=== PATIENT | male | born 1960 | race Caucasian/White ===

== ENCOUNTER → 2018-05-01 10:14 | Outpatient (CLI) | payer OTHER, MEDICAID, SELFPAY ==
[2018-05-01 11:06] LABS: Add Manual Diff / Slide Review NO; Basophils Percent Auto 0.7 % (0-2); Eosinophils Percent Auto 0.9 % (2-4); Hematocrit 41.8 % (41-53); Hemoglobin 14.9 g/dL (13.5-17.5); Lymphocytes Percent Auto 29.9 % (25-40); Mean Corpuscular HGB Conc 35.6 % (30-36); Mean Corpuscular Hemoglobin 32.2 PG (26-34); Mean Corpuscular Volume 90.5 fL (80-100); Monocytes Percent Auto 13.1 % (3-14); Neutrophils Absolute Auto 3200 /uL (3000-5900); Neutrophils Percent Auto 55.4 % (50-75); Platelet Count 232 X10^3/uL (150-400); Red Blood Cell Count 4.62 X10^6/uL (4.5-5.9); Red Cell Distribution Width 12.9 % (11.6-14.8); White Blood Cell Count 5.8 X10^3/uL (4.5-11.0)
[2018-05-01 11:25] LABS: Alanine Aminotransferase 77 IU/L (21-72); Albumin 4.5 g/dL (3.5-5.0); Albumin Globulin Ratio 1.5 (1.0-2.8); Alkaline Phosphatase 97 U/L (38-126); Aspartate Aminotransferase 54 IU/L (17-59); BUN Creatinine Ratio 16.7 (6-22); Bilirubin Total 0.6 mg/dL (0.2-1.3); Blood Urea Nitrogen 15 mg/dL (9-20); Calcium 9.4 mg/dL (8.4-10.2); Carbon Dioxide 28 mmol/L (22-32); Chloride 97 mmol/L (98-107); Cholesterol 269 mg/dL (140-199); Estimated Glomerular Filt Rate > 60.0 mL/min (>60); Globulin 3.1 g/dL (1.7-4.1); Glucose 95 mg/dL (80-110); HDL Cholesterol 82 mg/dL (40-60); HEMOLYSIS < 15 (0-50); LDL Cholesterol Calculated 163 mg/dL (<100); Potassium 4.1 mmol/L (3.4-5.1); Sodium 135 mmol/L (137-145); Total Protein 7.6 g/dL (6.3-8.2); Triglycerides 121 mg/dL (35-150)
== END ==
PROVIDERS: PCP Family Medicine; Visit Provider Family Medicine
DX: R74.8 Abnormal levels of other serum enzymes (principal)
CPT/HCPCS: 36415; 80053; 80061; 85025; G0103

== ENCOUNTER 2018-05-01 13:48 | Emergency (ER) | payer OTHER, MEDICAID, SELFPAY ==
[2018-05-01 13:58] VITALS: BP 156/100; PULSE 98; RESP 18; TEMP 36.2; O2SAT 98; BMI 26.4
--- NOTE | 2018-05-01 13:58 | ED.ALCOHOL ---
HPI - Alcohol <LILIAM Son - Last Filed: 05/01/18 22:17> General Chief Complaint: Toxicology Problem Stated Complaint: STATES ALCHOLISM Time Seen by Provider: 05/01/18 13:58 Source: patient Mode of arrival: ambulatory Limitations: no limitations History of Present Illness HPI narrative: 58-year-old male with history of alcohol abuse here for assistance and alcohol withdrawal as he is trying alcohol cessation. He denies having any alcohol withdrawal symptoms at this time. He states he does not have a history of having significant withdrawal symptoms. He does have an appointment with a doctor in the next few days to help with alcohol cessation. He denies any suicidal homicidal ideation. He does not desire inpatient services at this time. He is requesting to have an Ativan taper dose to help him with withdrawal symptoms over the next few days until he can get in with the doctor to help with alcohol cessation. No other concerns or complaints at this time. He states his last alcohol intake was yesterday afternoon. He states that his normal alcohol intake is roughly 12-15 beers a day. MD complaint: alcohol withdrawal Chronic alcohol use: Yes Previous visits for alcohol intoxication: Yes Associated symptoms: denies other symptoms Related Data Previous Rx's Medication Instructions Recorded chlordiazepoxide HCl 25 mg PO SEE INSTRUCTIONS #21 cap 12/11/17 estazolam 1 mg tablet 1 mg PO QDAYP #90 tab 01/14/18 paroxetine 40 mg tablet 40 mg PO Q DAY #90 tab 02/07/18 lorazepam See Label Instructions .ROUTE 05/01/18 .COMPLEX #18 tab Allergies Allergy/AdvReac Type Severity Reaction Status Date / Time No Known Drug Allergies Allergy Verified 05/01/18 13:57 Review of Systems <LILIAM Son - Last Filed: 05/01/18 22:17> Review of Systems Desires Ativan taper dose for alcohol withdrawal Constitutional Denies chills, Denies fever(s), Denies lethargy and Denies weakness Eyes Denies change in vision, Denies eye discharge, Denies irritation and Denies loss of vision ENT Ears, Nose, Mouth, and Throat: Denies change in voice, Denies neck pain and Denies sore throat Cardiovascular Denies chest pain, Denies irregular heart rhythm, Denies lightheadedness, Denies palpitations, Denies dyspnea, Denies dyspnea on exertion and Denies orthopnea Respiratory Denies cough, Denies dyspnea, Denies dyspnea on exertion and Denies wheezing Gastrointestinal Gastrointestinal: Denies abdominal pain, Denies change in bowel habits, Denies diarrhea, Denies nausea and Denies vomiting Genitourinary Denies hematuria, Denies flank pain, Denies urinary incontinence and Denies urinary urgency Musculoskeletal Denies neck pain Integumentary/Breasts Denies pruritus, Denies erythema, Denies rash and Denies wounds Neurologic Denies confusion, Denies loss of vision and Denies weakness Psychiatric Denies anxiety, Denies confusion, Denies depression, Denies homicidal ideation and Denies suicidal ideation Endocrine Denies palpitations Allergic/Immunologic Denies wheezing Exam <LILIAM Son - Last Filed: 05/01/18 22:17> Initial Vital Signs Initial Vital Signs: Vital Signs Temperature 97.2 F L 05/01/18 13:58 Pulse Rate 98 H 05/01/18 13:58 Respiratory Rate 18 05/01/18 13:58 Blood Pressure 156/100 H 05/01/18 13:58 Pulse Oximetry 98 05/01/18 13:58 Const General: cooperative and well developed Nutritional Appearance: well nourished Orientation: alert, awake, oriented x3 and not confused HENMT Mouth: oral mucosae normal and moist mucous membranes Eyes Conjunctivae: conjunctivae normal Sclera: sclerae normal Pupils: PERRL EOM: EOM intact bilaterally Resp Effort & Inspection: normal respiratory effort, able to speak in complete sentences, no respiratory distress and no use of accessory muscles Auscultation: clear to auscultation bilaterally, no rales, no rhonchi and no wheezes Cardio Rate: regular rate Rhythm: regular rhythm Heart Sounds: no click, no gallops, no murmurs and no rubs Skin General: no rashes or lesions noted, No jaundice and No petechiae Neuro General: alert, oriented x3, gait normal and no focal motor deficits Speech: speech normal Psych Appearance: well kempt Mental Status: mental status grossly normal Attitude: cooperative Thought Content: normal, no homicidality and suicidality Judgment: judgment good <Obed Mitchell DO - Last Filed: 05/02/18 07:28> Initial Vital Signs Initial Vital Signs: Vital Signs Temperature 97.2 F L 05/01/18 13:58 Pulse Rate 98 H 05/01/18 13:58 Respiratory Rate 18 05/01/18 13:58 Blood Pressure 156/100 H 05/01/18 13:58 Pulse Oximetry 98 05/01/18 13:58 Course <Jared LILIAM Duron - Last Filed: 05/01/18 22:17> Vital Signs - 8 hr 05/01/18 14:39 Pulse Rate 83 Respiratory Rate 20 Blood Pressure [Right Arm] 121/76 H Pulse Oximetry 97 <Obed Mitchell DO - Last Filed: 05/02/18 07:28> Vital Signs - 8 hr 05/01/18 14:39 Pulse Rate 83 Respiratory Rate 20 Blood Pressure [Right Arm] 121/76 H Pulse Oximetry 97 MDM - Alcohol <Jared GarciaLILIAM lozano - Last Filed: 05/01/18 22:17> MDM Narrative Medical decision making narrative: He appears to have good resource is set up for his alcohol cessation. He is provided with a Ativan taper dose to help with alcohol withdrawal symptoms. Follow up with his doctor next week as scheduled for further treatment. For any worsening symptoms return to the emergency room. He is instructed not to use Ativan taper dose in conjunction with alcohol. Discharge Plan Departure Patient Disposition: Home Clinical Impression: Alcohol abuse Discharge Date/Time: 05/01/18 14:40 Interventions: ED Discharge Assessment Last Done: 05/01/18 14:39 Instructions: DI for Alcohol Abuse Activity Restrictions/Additional Instructions: You are provided with an Ativan taper does use as directed to help with alcohol withdrawal symptoms use as directed. No driving while on the Ativan. If you drink alcohol do not use in conjunction with the Ativan. Follow up with your doctor as scheduled next week for further treatment options. For any worsening symptoms return to the emergency room. Prescriptions: New lorazepam 1 mg tablet See Label Instructions .ROUTE .COMPLEX Qty: 18 RF: 0 No Action chlordiazepoxide HCl 25 MG capsule 25 mg PO SEE INSTRUCTIONS Qty: 21 RF: 0 estazolam 1 mg tablet 1 mg PO QDAYP Qty: 90 RF: 0 paroxetine HCl [Paxil] 40 mg tablet 40 mg PO Q DAY Qty: 90 RF: 3 Referrals: Dakota Kruger MD [Primary Care Provider] - <Obed Mitchell DO - Last Filed: 05/02/18 07:28> Cosign ED Attending Cosignature Attestation: I was available for consultation during this patient's emergency department encounter
[2018-05-01 14:00] VITALS: BP 156/100; PULSE 98; RESP 18; TEMP 36.2; O2SAT 98; BMI 26.4
[2018-05-01 14:39] VITALS: BP 121/76; PULSE 83; RESP 20; O2SAT 97
--- NOTE | 2018-05-01 14:49 | CM.SWNOTE ---
ED SALESPERSON BURIAL NEEDS NOTE: Presenting Problem: Pt is a 58 yo male who appears to be his stated age. He came in requesting a taper to help with ETOH withdrawl. He reported that he did this last year and was able to stay sober for three months. Pt stated that he is currently srinking approximately 18 beers per day. He identified the precipitating factor for increased drinking which began 3 years ago as his daughter going away to college. He stated that he desires to stop drinking because he has a lot of responsibilities and is aware that he is self-medicating. Pt's daughter is beginning Law School at [employer] and wants to be a better role model for her. He spoke of the past several months as being very stressful. He lives on [address] [facility] and since August has been caring for his 91 yo mother and 89 yo father. They both ended up with pneumonia, but his father never returned home and instead has been residing at [facility]. Pt was able to identify family of origin issues as a precipitant to the increased stressors and use of alcohol. Instead of living in his own home, he has essentially moved into his parent's home and his house remains uninhabited. Pt reported that he has been taking Paxil for 25 years, and has a long history of depression. [facility] supported his desire to get help and his plan to see a new PCP through the [facility] clinic. Inquired if he has ever been to AA or nay interest in going. He was hesitant in his reponse, but basically stated that he knows it helps others, but has not been something he is interested in. [employer] inroduced him to the idea of [facility], and provided him with the phone # and meeting times. He seemed interested and appreciative of time spent. No further social work needs noted. Pt was discharged home with script for ETOH taper. EDischarge Planning/Care Management ED Crisis Response Assessment Start: 05/01/18 14:44 Freq: Status: Active Protocol: Document 05/01/18 14:44 (Rec: 05/01/18 14:49 [id number]) ED Crisis Response Assessment [employer]ERSON [employer] NEED[employer] Assessment Type Substance Abuse Reason for [employer]ERSON [employer]IAL NEEDS Referral Pt came to the ED for a taper to help with ETOH withdrawal. Referred by Pt's RN Presenting Problem Pt is driking 18 beers per day and wants to stop drinking. Mental health diagnosis ETOH abuse; depression VOA/CMS check No Suicidal thoughts No Past Suicidal thoughts No Current Suicidal thoughts No Current plan for self harm No Thoughts of harm to others No Past thoughts of harm to others No Current thoughts of harming others No Prior attempts to harm others No Current plan to harm others No Current Risk factors Marital and family difficulties Crisis Plan Pt has an appt with Dr Garcia at the [facility] on Saturday. If he feels as though he may drink, will call his brother who lives in [facility] and is a good support to him. Resources Provided Info and phone numbers for AA and [facility]. Pt already had information for [facility] and crisis numbers. Action taken Sent home w/ safety plan Additional Comment Pt is very motivated for change and has a good support system.
== END 2018-05-01 14:40 | disposition home or self-care (01) ==
PROVIDERS: Emergency Provider Nurse Practitioner Family; PCP Family Medicine
DX: F10.10 Alcohol abuse, uncomplicated (principal)
CPT/HCPCS: 36415; 80053; 80061; 85025; 99282; 99283; G0103

== ENCOUNTER → 2019-04-23 08:47 | Outpatient (CLI) | payer OTHER, MEDICAID, SELFPAY ==
--- NOTE | 2019-04-23 | DI.US.S_ITS ---
PROCEDURE: US THYROID INDICATIONS: DISORDER OF THYROID, UNSPECIFIED, LEFT SIDE TECHNIQUE: Real-time scanning was performed of the thyroid gland, with image documentation. COMPARISON: None. FINDINGS: Right: Thyroid lobe measures 5.5 x 1.4 x 1.5 cm, and is homogeneous in echotexture. 2 mm right thyroid calcification. Left: Thyroid lobe measures 6.2 x 2.4 x 3.3 cm, and is homogenous in echotexture. Isthmus: 3.0 mm thick. Nodule number: 1 Location: Right mid to superior Size: 0.6 x 0.3 x 0.5 cm. Composition: Predominantly solid Echogenicity: Hypoechoic Shape: wider than tall. Margins: Smooth Echogenic foci: None Total points: 4 ACR TI-RADS category: Moderately suspicious Nodule number: 2 Location: Left lobe Size: 4.5 x 2.2 x 3.6 cm. Composition: Predominantly solid Echogenicity: Isoechoic Shape: wider than tall. Margins: Smooth Echogenic foci: Internal punctate echogenic foci. Total points: 6 ACR TI-RADS category: Moderately suspicious IMPRESSION: 1. Left lobe thyroid nodule measuring 4.5 cm. TI-RADS 4. FNA is recommended. 2. Right mid/superior subcentimeter thyroid nodule. TI-RADS 4. Followup ultrasound could be considered. ACR TI-RADS definitions and recommendations: TI-RADS 1 (benign): 0 points. FNA not needed. TI-RADS 2 (not suspicious): 2 points. FNA not needed. TI-RADS 3 (mildly suspicious): 3 points. * FNA if 2.5 cm or larger, follow up if 1.5 cm or larger (at 1, 3, and 5 years). TI-RADS 4 (moderately suspicious): 4-6 points. * FNA if 1.5 cm or larger, follow up if 1 cm or larger (at 1, 2, 3, and 5 years). TI-RADS 5 (highly suspicious): 7 points or more. * FNA if 1 cm or larger, follow up if 0.5 cm or larger (every year for 5 years). Dictated by: Uzair SHARMA Interpreted: Alexis Wells MD on 04/23/2019 at 10:52 Approved by: Alexis Wells M.D. on 04/23/2019 at 16:03
[2019-04-23 11:06] LABS: Free T4, Direct Thyroxine 0.68 ng/dL (0.78-2.19)
[2019-04-25 15:12] LABS: Triiodothyronine T3 Total 116 ng/dL (76-181)
== END ==
PROVIDERS: PCP Internal Medicine; Visit Provider Internal Medicine
DX: E04.2 Nontoxic multinodular goiter (principal)
CPT/HCPCS: 36415; 76536; 84439; 84443; 84480

== ENCOUNTER → 2019-05-18 09:39 | Outpatient (CLI) | payer OTHER, MEDICAID, SELFPAY ==
--- NOTE | 2019-05-18 | PATH_ITS ---
Note [facility] Accession Number: [id number] TESTS RESULT FLAG UNITS REF RANGE LAB Clinician Provided Cytology Information No. of containers..01 ThinPrep Vial No. of containers..00 Previously Prepared Cytology Slide LEFT THYROID NODULE DIAGNOSIS: 02 LEFT THYROID NODULE SUSPICIOUS FOR FOLLICULAR NEOPLASM. [place] CATEGORY IV. SUSPICIOUS FOR FOLLICULAR NEOPLASM. Moderately cellular aspirate of follicular cells with microfollicular architecture, and scant colloid. Pathologist ICD10: 02 R89.6 01 59 year old male presents with c/o mass Location Neck left lower side Duration 1 week to 1 month Character Non-painful,Stable in size Diagnostic imaging No Comments He does not report weight loss or changes in appetite but does feel a bit more fatigued than usual. 02 Jesse Mulligan MD, PhD, Pathologist NPI- [id number] Derrick Lindsay, Blade Boner ([facility]) 01 30 CC, RED, CLOUDY Received: 10 alcohol fixed and 10 quick stained slides with 1 RNA vial for further testing. /VDU 05/19/2019 0727 Local FLAG LEGEND: L-Low Normal,H-High Normal,LL-Alert Low,HH-Alert High <-Panic Low,>-Panic High,A-Abnormal,AA-Critical Abnormal Performed at: 01 =Z [facility] [address] [place] [address], [place] [address] Joon London MD, 02 [facility] [address] [place] [id number] Dominique Cotton MD, Performed at: [address] [facility] [address], [place], [place] [id number] MD Joon London MD Phone: [phone]
--- NOTE | 2019-05-18 | DI.US.S_ITS ---
PROCEDURE: US FINE NEEDLE ASPIRATION INDICATIONS: NONTOXIC SINGLE THYROID GOITER TECHNIQUE: The indications, alternatives, benefits, risks, and complications of the procedure were explained to the patient. Written informed consent was obtained and placed in the chart. The thyroid region was examined sonographically and a site was chosen for ultrasound guided percutaneous sampling. The skin was prepared and draped in the usual fashion, and anesthetized with 1% lidocaine infiltrated from the skin down to the thyroid gland. Multiple passes were then performed, with contents emptied into an appropriate pathology specimen container. After the on-site neon technician confirmed adequate sample, a bandage was applied to the area of access at completion of the study. COMPARISON: [facility], US, US THYROID, 04/23/2019, 9:09. FINDINGS: Location(s) of lesion(s) sampled: Left thyroid lobe, as described on comparison ultrasound of the thyroid gland of 04/23/19. [place]: 6 25-gauge hypodermic needles and 6 22-gauge hypodermic needles. Number of passes: 6 passes with 25-gauge hypodermic needles and 6 passes with 22-gauge hypodermic needles, for a total of 12 passes. Medications: 1% lidocaine for local anaesthesia. Complications: None. Patient denies any complaints or discomfort. IMPRESSION: Successful ultrasound-guided thyroid nodule fine needle aspiration, with cytology results pending. Please see chart below for management recommendations based on cytology results. [place] [facility] ReportingRecommendationsNon-diagnostic* Repeat US-guided FNA, with on-site cytology evaluation if possible. * Repeated non-diagnostic nodules without high suspicion US features: close observation vs surgical consult. * Consider surgery if nodule has high suspicion US features, grows >20% in 2 dimensions on followup, or patient has clinical risk factors for malignancy. Benign* If nodule has high suspicion US features: repeat US and FNA within 12 months. * If nodule has low to intermediate suspicion US features: repeat US at 12-24 months. If nodule grows (20% increase in at least 2 dimensions, with minimal increase of 2 mm or >50% change in volume), or development of new suspicious US features, then repeat FNA or continue followup. * If nodule has very low suspicion US features: followup US at >24 months. Atypia of undetermined significance, follicular lesion of undetermined significanceRepeat FNA, molecular testing, followup US, or surgical consult.Follicular neoplasm, suspicious for follicular neoplasmSurgical consult; also consider molecular testing. Suspicious for malignancySurgical consult.MalignantSurgical consult. Dictated by: Adrien Mckenzie M.D. on 05/18/2019 at 12:45 Approved by: Adrien Mckenzie M.D. on 05/18/2019 at 12:48
--- NOTE | 2019-06-02 13:28 | ONC.MSW ---
Description: T/C-New Referral/Navigation Activity: Called pt to introduce myself as the RESPIRATORY THERAPY DIRECTOR/CHELISE, share briefly the role of navigation, support and assistance available here in clinic. Informed him that we were working on pre-authorizing his referral here, and that the schedulers would be calling him shortly to schedule. No immediate needs or concerns identified at this time.
--- NOTE | 2019-06-04 09:35 | ONC.SCHED ---
Left msg. on voicemail to get patient scheduled.
== END ==
PROVIDERS: PCP Internal Medicine; Visit Provider Internal Medicine
DX: E04.1 Nontoxic single thyroid nodule (principal)
CPT/HCPCS: 10005

== ENCOUNTER 2019-06-04 12:46 | Day surgery (SDC) | payer OTHER, MEDICAID, SELFPAY ==
[2019-06-04 13:36] VITALS: BP 110/69; PULSE 57; RESP 16; TEMP 36.6; O2SAT 97; BMI 24.8
[2019-06-04] MEDS: SODIUM CHLORIDE 0.9% 1,000 ML 200 ML IV (13:44)
--- NOTE | 2019-06-04 14:03 | P.HP_ITS ---
History of Present Illness History of Present Illness Date Patient Seen: 06/04/19 Time Patient Seen: 14:03 Chief complaint: [id number] Narrative: Patient presents for colorectal screening. They had a previous colonoscopy 11 years ago that was normal. On further history denies any recent gastrointestinal symptoms. No nausea, vomiting, abdominal pain, loss of appetite, unexplained weight loss, change in bowel habits, diarrhea, constipation, melena, hematochezia, or bright red blood per rectum. Patient History Medical History Alcohol abuse (Chronic) Chronic back pain (Chronic 2005) Depression (Chronic 1986) Lumbar spine pain (Chronic 2004) Osteoarthritis (Chronic 2003) Shoulder pain (Chronic 2005) Surgical History No history of previous surgery (Resolved 01/17/16) Family History Mother Age: 93 Hypertension Osteoporosis Stroke Brother No problems noted. Brother No problems noted. Father No problems noted. Social History household members: family Smoking Status: Current every day smoker Family & Social History Family History Mother Age: 93 Hypertension Osteoporosis Stroke Brother No problems noted. Brother No problems noted. Father No problems noted. Social History: household members family Tobacco & Substance use: Smoking Status Current every day smoker alcohol intake frequency 0-2 drinks per day Substance Use Type does not use Meds Home Medications and Allergies Home Medications Medication Instructions Recorded Confirmed Type paroxetine HCl 40 mg tablet 40 mg PO Q DAY #90 tab 02/07/18 06/04/19 Rx estazolam 1 mg tablet 1 mg PO QDAYP #90 tab 09/03/18 06/04/19 Rx finasteride 5 mg PO DAILY 06/04/19 06/04/19 History tamsulosin 0.4 mg PO DAILY 06/04/19 06/04/19 History Allergies Allergy/AdvReac Type Severity Reaction Status Date / Time No Known Drug Allergies Allergy Verified 06/04/19 13:28 Review of Systems Review of Systems ROS Unobtainable: All systems reviewed & are unremarkable except as noted in HPI and below Exam Vital Signs (past 8 hours): - 06/04/19 13:36 Temperature 97.9 F Pulse Rate 57 L Respiratory Rate 16 Blood Pressure 110/69 Pulse Oximetry 97 Oxygen Delivery Method Room Air Narrative Exam Narrative: General-adult male no acute distress, well nourished HEENT-moist mucous membranes, no scleral icterus Neck-supple with full range of motion, no lymphadenopathy Chest- no labored respirations, clear to auscultation bilaterally Cardiac-regular rate and rhythm Abdomen-soft, nontender, non distended Extremities-no edema, warm well perfused Neurological-alert and oriented x 3. No focal deficits Skin-normal temperature and turgor, no rashes or ulcers Assessment & Plan Assessment and plan (1) Screening for colon cancer: Current visit: Yes Status: Acute Assessment & Plan narrative: Patient is requiring colorectal screening. Colonoscopy is recommended. Technical details were discussed. Risks, benefits, alternatives explained. Risks including but not limited to sedation, aspira tion, bleeding, pain, missed lesion, incomplete examination, need for further radiographic studies, colonic perforation, need for major abdominal surgery, and all attendant risks major surgery were discussed at length. All questions were answered to their satisfaction, and they voiced understanding.
[2019-06-04] MEDS: fentaNYL 250 MCG/5 ML INJ IV (14:22)
[2019-06-04] MEDS: MIDAZOLAM 5 MG/5 ML VIAL IV (14:23)
[2019-06-04 14:30] VITALS: BP 101/64; PULSE 63; RESP 15; TEMP 36.2; O2SAT 99
--- NOTE | 2019-06-04 14:34 | PM.OP.ENDO ---
Operative Date/Time/Diagnoses Date of procedure: 06/04/19 Time of procedure: 14:34 Pre-op diagnosis: Screening colonoscopy Post-op diagnosis: same Procedure & Clinicians Study performed: Colonoscopy Same procedure as scheduled: Yes Indications: 59-year-old male with previous normal colonoscopy 11 years ago presents for screening Surgeon: Marcio Humphrey Procedure Notes SCOAP/Timeout: Performed Procedure in detail: Digital rectal exam was performed that was negative for internal or external masses. The scope was advanced into the rectum and then advanced carefully who colon. The ileocecal valve was reached. The scope was then carefully withdrawn. The quality of the prep was excellent. There were no masses polyps or evidence of diverticulosis. Scope was retroflexed within the rectum in demonstrated grade 1 internal hemorrhoids. Scope withdrawal time: 9 Sedation minutes: 21 Specimen(s): none sent Complications: none Impression: Normal colonoscopy Post-procedure Recommendations: Colonscopy in 10 years Disposition: same day surgery
[2019-06-04 14:35] VITALS: BP 98/62; PULSE 56; RESP 15; O2SAT 99
[2019-06-04 14:40] VITALS: BP 99/62; PULSE 63; RESP 16; O2SAT 100
[2019-06-04 15:05] VITALS: BP 101/61; PULSE 54; RESP 15; TEMP 36.7; O2SAT 95
== END 2019-06-04 15:10 | disposition home or self-care (01) ==
PROVIDERS: PCP Internal Medicine; Visit Provider Surgery
PROC: 0DJD8ZZ Inspection of Lower Intestinal Tract, Via Natural or Artificial Opening Endoscopic (ICD-10-PCS; CPT 45378; principal; 2019-06-04 13:45)
DX: Z12.11 Encounter for screening for malignant neoplasm of colon (principal); K64.0 First degree hemorrhoids
CPT/HCPCS: 45378; 99152; J2250; J3010

== ENCOUNTER → 2019-06-24 09:00 | Outpatient (CLI) | payer OTHER, MEDICAID, SELFPAY ==
--- NOTE | 2019-06-24 09:06 | DI.CT.S_ITS ---
PROCEDURE: CT SOFT TISSUE NECK W CON INDICATIONS: THYROID CANCER TECHNIQUE: After the administration of intravenous contrast, 3.0 mm axial sections acquired from the sella to the aortic arch. Additional oblique axial 3.0 mm sections acquired through the pharynx. 3 mm thick coronal and sagittal reformats were generated. For radiation dose reduction, the following was used: automated exposure control. COMPARISON: [facility], , US FINE NEEDLE ASPIRATION, 05/18/2019, 10:32. [facility], , US THYROID, 04/23/2019, 9:09. FINDINGS: Image quality: Excellent. Lymph nodes: No pathologically enlarged lymph nodes seen throughout the neck. There are shotty bilateral cervical lymph nodes, all of which appear to be subcentimeter short axis. Vessels: Visualized vasculature appears patent. Neck spaces: The oropharynx, nasopharynx, and pharynx demonstrate no mucosal lesions. The vocal cords, false vocal cords, pyriform sinuses, epiglottis, vallecula, and tongue base all appear normal. Extramucosal spaces appear unremarkable. Glands: The parotid and submandibular glands appear normal. Large hypoattenuating left lobe thyroid lesion in keeping with the patient's given clinical history of carcinoma. Miscellaneous: Visualized brain and orbits appear normal. Lung apices appear clear. Superficial soft tissues appear normal. Bones: No suspicious bony lesions. Visualized sinuses and mastoids appear unremarkable. Straightening of the normal lordotic curvature. Multilevel degenerative endplate sclerosis and spurring. Diffuse facet arthropathy. IMPRESSION: No specifically pathologically enlarged cervical lymphadenopathy or evidence of distant metastatic disease. Redemonstration of large left thyroid nodule, in keeping with the given clinical history of thyroid carcinoma. Dictated by: Julio Jarrell M.D. on 06/24/2019 at 9:39 Approved by: Julio Jarrell M.D. on 06/24/2019 at 9:45
== END ==
PROVIDERS: PCP Internal Medicine; Visit Provider Internal Medicine Hematology & Oncology
DX: C73 Malignant neoplasm of thyroid gland (principal)
CPT/HCPCS: 70491; Q9967

== ENCOUNTER 2019-07-14 09:35 | Inpatient (IN) | payer OTHER, MEDICAID, SELFPAY ==
[2019-07-03 07:36] VITALS: BMI 24.8
[2019-07-14] VITALS (16 sets, daily range): BP systolic 112–140; BP diastolic 62–82; PULSE 47–71; RESP 9–18; TEMP 35.9–36.5; O2SAT 95–100; BMI 24.8
--- NOTE | 2019-07-14 | PATH_ITS ---
[facility] Accession Number: [id number] . 01 Material submitted: . thyroid gland - LEFT THYROID LOBE . 01 Clinical history: . THYROIDECTOMY . 02 Diagnosis: Left Thyroid Lobe, Hemithyroidectomy (Weight 18 grams): Neoplasm of the thyroid with the following characteristics: Procedure: Left thyroid lobectomy. Tumor site: Left lobe. Histologic type: Incidental papillary carcinoma, microcarcinoma variant. Tumor size: 0.3 cm greatest dimension. Tumor laterality: Presumed unilateral (incidental finding). Tumor focality: Unifocal. Margins: Uninvolved by tumor. Angioinvasion: Not identified. Lymphovascular invasion: Not identified. Perineural invasion: Not identified. Extrathyroidal extension: Not identified. Regional lymph nodes: Not submitted. Additional findings: Follicular adenoma (3.7 x 2.7 x 2.4 cm). AJCC stage (8th edition): pT1a pNX MRV 07/17/2019 1440 Local . 02 Comment: QA performed by Drs. Denton and Evangelina. . Results discussed with Dr. Humphrey's nurse, Lucia, on 07-17-19 at approximately 12:55 p.m. . . . 02 Electronically signed: . Mere Jimenez MD, Pathologist NPI- [id number] . 01 Gross description: . The specimen is received in a formalin-filled container, labeled left thyroid lobe, and consists of an 18.0 gram, 5.4 x 3.7 x 2.8 cm, left thyroid lobe with an attached 1.5 x 1.0 x 0.8 cm portion of isthmus. Orientation is not provided. The specimen is pink-red, hemorrhagic, smooth to ragged. The isthmus margin is inked orange, and the remaining specimen is inked blue. Sectioning reveals a 3.7 x 2.7 x 2.4 cm, pink-pereira hemorrhagic heterogeneous, well-delineated, focally friable mass focally extends into the superior pole; however, it is primarily located within the mid and inferior poles. The mass focally abuts the blue-inked external surface and is over 1.0 cm from the orange-inked isthmus margin. Grossly, there is no extrathyroidal extension identified. The remaining cut surfaces are pink-red, homogenous, and unremarkable. Cardiovascular Rn sections are submitted as follows: A1 - mass from superior pole of left lobe; A2-3, 4-5, 6-7, and A8-9 - each pair single slice bisected: mass from midsection of left lobe in relationship to blue-inked external surface and isthmus margin; A10-A11, A12-13, A14-15 - each pair single slice bisected; mass from inferior pole of left lobe; A16-A17 - remainder of mass from inferior pole of left thyroid lobe. Please note, the entirety of the mass has been submitted. ([id number]) /MRV 07/15/[address] [place] [address] . 02 Pathologist provided ICD-10: C73 . 02 CPT . 746911 Performed at: 01 [facility] [address] [id number] MD Joon London MD Phone: [phone] Performed at: 02 [facility] [address] [place], [place] [id number] MD Dominique Cotton MD Phone: [phone]
[2019-07-14] MEDS: LACTATED RINGERS 1,000 ML 100 ML IV ×2 (10:08→13:02)
--- NOTE | 2019-07-14 10:36 | PC.NURSE ---
Day shift: Pt not on AC unit at this time.
--- NOTE | 2019-07-14 10:51 | PM.PREOP ---
Pre-operative Note Interval Note History & Physical reviewed/Exam performed by Physician: Yes Changes to H&P: No
[2019-07-14] MEDS: CEFAZOLIN 2 GM/100 ML FROZ.PIGGY IV (11:07)
--- NOTE | 2019-07-14 11:41 | SUR.OPER ---
Supine on padded OR bed, head on pillow, arm padded and tucked at side, legs uncrossed, safety belt at thigh, tape over blanket over lower legs .Pillow under knees, gel pad under heels, gel donut under head
[2019-07-14] MEDS: BUPIVACAINE 0.25% (PF) VIAL 30 ML INJ (12:38)
[2019-07-14] MEDS: MEPERIDINE 50 MG/ML INJ 25 MG IV ×2 (12:53→13:00)
[2019-07-14] MEDS: fentaNYL 100 MCG/2 ML INJ 50 MCG IV (13:15)
--- NOTE | 2019-07-14 13:18 | P.OP_ITS ---
Operative Date/Time/Diagnoses Date of procedure: 07/14/19 Time of procedure: 13:18 Pre-op diagnosis: Left thyroid nodule Post-op diagnosis: same Procedure & Clinicians Procedure: Left thyroid lobectomy Same procedure as scheduled: Yes Indications: This is a 59-year-old male who developed a left thyroid nodule. He underwent imaging which demonstrates a 4.5 cm nodule, core needle biopsy pathology demonstrates suspicious for follicular neoplasm. He presents today for a diagnostic left thyroid lobectomy. Surgeon: Marcio Humphrey [employer]aving Machine Operator: Emma Philip Anesthesia Type: General Operative Notes Findings: Large left thyroid nodule Specimen(s): other (Left thyroid lobectomy) Estimated Blood Loss (mL): 20 Procedure in detail: Patient was brought to the operating room and placed supine on the table. Bilateral lower extremity compression devices were applied. General anesthesia was induced and he was intubated with an endotracheal tube. 2 g of Ancef were infused prior to skin incision. A shoulder roll was placed to extend the neck. He was prepped and draped in sterile fashion. A time-out was performed to ensure the correct patient procedure necessary equipment within the operating room. A 6 cm collar incision 2 fingerbreadths above the sternal notch was made in the natural skin crease of his neck. The subcutaneous tissue was divided as well as the platysma using electrocautery. Subplatysmal flaps were developed in all directions. The midline raphe between the strap muscles was opened vertically along the direction of its fibers. The left thyroid lobe was very prominent. The superior pole of the thyroid was approached 1st. The superior pole vessels were divided between silk suture and using the Thunderbeat close to the thyroid capsule. Next the inferior pole was approached and the strap muscles were carefully dissected away from the thyroid. The thyroid was then mobilized medial and anterior and this provided exposure of the recurrent laryngeal nerve running in the tracheoesophageal groove. The nerve was traced distal and proximal to its insertion and protected out of harm's way. The superior and inferior parathyroid glands were identified and protected. The middle thyroid vein was ligated and divided. The thyroid lobe was then dissected off of the trachea in its entirety and passed off the field as specimen. The isthmus was divided using the Thunderbeat. The field was copiously irrigated with water and hemostasis was achieved. A Valsalva was prov ided and there was no evidence of hemorrhage. The left thyroid bed was then dressed with Surgicel. Strap muscles were reapproximated using 3 0 Vicryl and the platysma with 4 0 Maxon. The skin was closed with a running 4-0 Monocryl suture followed by the application of Dermabond and Steri-Strips. Patient tolerated the procedure well. He emerged from anesthesia was extubated and transferred to the postoperative care unit in stable condition. Complications: none Post-operative Condition: stable Disposition: observation
[2019-07-14] MEDS: HYDROMORPHONE 2 MG INJ 0.5 MG IV (13:21)
--- NOTE | 2019-07-14 13:41 | SUR.PHASEI ---
REPORT CALLED TO MAITE COLBERT ON ACUTE CARE FLOOR. PT IN STABLE CONDITION, VSS. PT RESTING IN BED WITH EYES CLOSED AT THIS TIME, EASILY AROUSABLE TO VOICE WHEN SPOKEN TO. DRSG OBSERVED TO BE C/D/I. PT DENIES ANY NAUSEA. PT APPEARS COMFORTABLE AT THIS TIME.
--- NOTE | 2019-07-14 14:03 | SUR.PHASEI ---
PT TRANSFERRED TO ACUTE CARE FLOOR IN STABLE CONDITION, VSS. BEDSIDE REPORT GIVEN TO MAITE JUAREZ UPON ARRIVAL TO ROOM. TRANSFERRED PT TO MAITE COLBERT AT THAT TIME.
--- NOTE | 2019-07-14 14:05 | PC.NURSE ---
Day shift: Pt on unit from PACU at 1400. Dressing is CDI. Pt A&Ox4. 1L NC 95%. Friend in room for support. Pt informed that when he eats and drinks he needs to be sitting up straight.
[2019-07-14] MEDS: SODIUM CHLORIDE 0.9% 1,000 ML 125 ML IV (14:43)
[2019-07-14] MEDS: OXYCODONE/ACETAMINOPHEN 5/325 TABLET 1 TAB PO (14:47)
[2019-07-15 00:46] VITALS: BP 104/64; PULSE 56; RESP 16; TEMP 36.6; O2SAT 95
[2019-07-15 05:54] VITALS: BP 103/58; PULSE 55; RESP 16; TEMP 37.1; O2SAT 96
--- NOTE | 2019-07-15 06:39 | PM.DS.1 ---
History of Present Illness History of Present Illness Date Patient Seen: 07/15/19 Time Patient Seen: 06:39 Chief complaint: Thyroidectomy Narrative: This is a 59-year-old male with a large left thyroid nodule suspicious for follicular carcinoma. Ultrasound shows a 4.5 cm left thyroid nodule that was biopsied, pathology demonstrates suspicious for follicular carcinoma, Rembrandt level 4. He has a sub 1 cm nodule in the right thyroid as well that was not biopsied. I reviewed his CT neck which demonstrates the nodules as described and no cervical lymphadenopathy. We had a discussion regarding his pathology, I told him his risk of cancer is 15-30% I explained that with follicular carcinoma a diganosis is unable to be made until the lesion has been excised and the pathologist determines whether or not there is thyroid capsular invasion. His options are thyroid lobectomy vs total thyroidectomy. His preference is left thyroid lobectomy and depending on pathology he require completion thyroidectomy followed by radioactive iodine treatment. Discharge Providers Provider Date of admission: 07/14/19 09:35 Discharge Date: 07/15/19 Primary care physician: Derrick Steven MD Discharge provider: Marcio Humphrey MD Summary Hospital Course Discharge Diagnosis: Status post left thyroid lobectomy Hospital Course: Patient underwent a left thyroid lobectomy on 07/14/2019. The operation was unremarkable. Postoperatively the patient did well he had no neck hematoma is speaking and swallowing normally tolerating a diet and his pain is controlled with oral medication. He is stable for discharge at this point time. Status at Discharge Cognitive/behavioral status at discharge: oriented Functional status at discharge: independent ambulation Overall status at discharge: patient is back to baseline Time Spent with Patient Time spent: Greater than 30 minutes Exam Vital Signs (past 8 hours): - 07/15/19 00:46 07/15/19 05:54 Temperature 97.8 F 98.7 F Pulse Rate 56 L 55 L Respiratory Rate 16 16 Blood Pressure 104/64 103/58 L Pulse Oximetry 95 96 Oxygen Delivery Method Room Air Oxygen Flow Rate 0 Narrative Exam Narrative: General-no acute distress, well nourished HEENT-moist mucous membranes, no scleral icterus Neck-collar incision clean dry intact. No hematoma. Speaking in normal voice Chest- non labored respirations, clear to auscultation bilaterally Cardiac-regular rate no peripheral edema Abdomen-soft, nontender, non distended Extremities-warm, well perfused Neurological-alert and oriented, no focal deficits Discharge Plan Discharge Plan Patient Disposition: Home Discharge Med Rec/Prescriptions Prescriptions: New tramadol 50 mg tablet 50 mg PO Q6H PRN (Reason: pain) Qty: 30 RF: 0 acetaminophen [Tylenol] 325 mg capsule 650 mg PO QID PRN (Reason: pain) Qty: 60 RF: 0 Continued paroxetine HCl [Paxil] 40 mg tablet 40 mg PO Q DAY Qty: 90 RF: 3 tamsulosin 0.4 mg Capsule 0.4 mg PO QPM RF: 0 finasteride 5 mg Tablet 5 mg PO DAILY RF: 0 ibuprofen 200 mg Tablet 200 mg PO Q6H PRN (Reason: Pain) RF: 0 estazolam 1 mg tablet 1 mg PO QDAYP PRN (Reason: Sleep ) RF: 0 Follow up/Referrals: Derrick Steven MD [Primary Care Provider] - Marcio Humphrey MD [Physician] - Provider Discharge Instructions Diet: Regular Activity: May shower 07/17/2019 but do not submerge the wound until follow-up. No driving while taking narcotic Skin/Wound/Dressing Care Report to your healthcare provider any signs of infection, such as:: increased pain and unusual drainage Visit Report/Discharge Packet Instructions: DI for Thyroidectomy, Tramadol Stand Alone Forms: Surgery Discharge Visit Report Forms: Patient Portal/API, Stroke Signs & Symptoms Discharge Data Primary Care Provider: Derrick Steven VTE Deep Vein Thrombosis/Pulmonary Embolism Present on Admission: No
--- NOTE | 2019-07-15 08:31 | PC.NURSE ---
Day Shift- Pt up ambulating in room indep with steady gait, no difficulty noted. States swallowing fluids, soft foods ok. Instructed to keep upright when having foods/liquids. Encouraged to take small bites and chew foods well. States 2/10 dull aching to anterior neck surgical site. Did not want prn meds at this time. is ready to go home. His friend Ysabel is present to drive him home. His plan is to go have breakfast then home to [facility]. Pt given prescription for PRN Tramadol. Discharge summary packet reviewed with pt, no voiced concerns. already has follow up appointment with Dr. Humphrey. Pt left unit via wheelchair at 0822 with all belongings and this RN.
== END 2019-07-15 08:22 | disposition home or self-care (01) | DRG 404 ==
PROVIDERS: Admitting Provider Surgery; PCP Internal Medicine; Visit Provider Surgery
PROC: 0GBG0ZZ Excision of Left Thyroid Gland Lobe, Open Approach (ICD-10-PCS; principal; 2019-07-14 10:45)
DX: C73 Malignant neoplasm of thyroid gland (principal); F17.210 Nicotine dependence, cigarettes, uncomplicated
CPT/HCPCS: 60220; J0330; J0690; J1100; J1170; J2175; J2405; J2704; J3010

== ENCOUNTER → 2019-08-21 10:21 | Outpatient (CLI) | payer OTHER, MEDICAID, SELFPAY ==
[2019-07-14 15:18] VITALS: BMI 24.8
[2019-08-21 11:25] LABS: Add Manual Diff / Slide Review NO; Basophils Absolute Auto 0 /uL (0-100); Basophils Percent Auto 0.8 % (0-2); Eosinophils Absolute Auto 0 /uL (0-450); Eosinophils Percent Auto 1.2 % (2-4); Hematocrit 42.5 % (41-53); Hemoglobin 14.8 g/dL (13.5-17.5); Lymphocytes Absolute Auto 1400 /uL (1100-4500); Lymphocytes Percent Auto 34.5 % (25-40); Mean Corpuscular HGB Conc 34.8 % (30-36); Mean Corpuscular Hemoglobin 31.1 PG (26-34); Mean Corpuscular Volume 89.2 fL (80-100); Monocytes Absolute Auto 400 /uL (0-900); Monocytes Percent Auto 10.1 % (3-14); Neutrophils Absolute Auto 2200 /uL (1500-7000); Neutrophils Percent Auto 53.4 % (50-75); Platelet Count 226 X10^3/uL (150-400); Red Blood Cell Count 4.76 X10^6/uL (4.5-5.9); Red Cell Distribution Width 13.8 % (11.6-14.8); White Blood Cell Count 4.1 X10^3/uL (4.5-11.0)
[2019-08-21 11:41] LABS: Alanine Aminotransferase 35 IU/L (<50); Albumin 4.4 g/dL (3.5-5.0); Albumin Globulin Ratio 1.5 (1.0-2.8); Alkaline Phosphatase 106 U/L (38-126); Aspartate Aminotransferase 40 IU/L (17-59); BUN Creatinine Ratio 17.5 (6-22); Bilirubin Total 0.4 mg/dL (0.2-1.3); Blood Urea Nitrogen 14 mg/dL (9-20); Calcium 9.4 mg/dL (8.4-10.2); Carbon Dioxide 30 mmol/L (22-32); Chloride 99 mmol/L (98-107); Estimated Glomerular Filt Rate > 60.0 mL/min (>60); Glucose 101 mg/dL (80-110); HEMOLYSIS < 15 (0-50); Sodium 136 mmol/L (137-145); Total Protein 7.4 g/dL (6.3-8.2)
[2019-08-21 12:33] LABS: Free T3, Triiodothyronine Free 3.93 pg/mL (2.77-5.27); Free T4, Direct Thyroxine 0.69 ng/dL (0.78-2.19)
[2019-08-21 12:46] LABS: Thyroid Stimulating Hormone 2.25 uIU/mL (0.47-4.68)
[2019-08-25 14:07] LABS: Anti Thyroglobulin Antibody < 1 IU/mL (< 2); Thyroglobulin Level 8.3 ng/mL (2.8-40.9)
[2019-08-25 15:46] LABS: Triiodothyronine T3 Total 83 ng/dL (76-181)
== END ==
PROVIDERS: PCP Internal Medicine; Visit Provider Internal Medicine Hematology & Oncology
DX: C73 Malignant neoplasm of thyroid gland (principal)
CPT/HCPCS: 36415; 80053; 84432; 84439; 84443; 84480; 84481; 85025; 86800

== ENCOUNTER → 2020-06-06 09:25 | Outpatient (CLI) | payer OTHER, MEDICAID, SELFPAY ==
[2019-07-14 15:18] VITALS: BMI 24.8
--- NOTE | 2020-06-06 09:32 | DI.RAD.S_ITS ---
PROCEDURE: XR HIP W PEL IF DONE LT MIN 4V INDICATIONS: bilateral hip pain oa TECHNIQUE: AP pelvis with lateral view(s) of the right and left hip(s). COMPARISON: None. FINDINGS: Bones: No fracture. Moderate bilateral hip joint degeneration. Lower lumbar spondylosis and facet arthropathy. Bilateral os acetabulum incidentally noted. Soft tissues: The visualized bowel gas pattern is normal. No suspicious soft tissue calcifications. IMPRESSION: Moderate bilateral hip joint degeneration. Dictated by: Julio Jarrell M.D. on 06/06/2020 at 11:14 Approved by: Julio Jarrell M.D. on 06/06/2020 at 11:16
== END ==
PROVIDERS: PCP Family Medicine; Referring Provider Family Medicine; Visit Provider Family Medicine
DX: M25.551 Pain in right hip (principal); M25.552 Pain in left hip; M16.0 Bilateral primary osteoarthritis of hip
CPT/HCPCS: 73522

== ENCOUNTER → 2020-06-20 10:41 | Outpatient (CLI) | payer OTHER, MEDICAID, SELFPAY ==
[2019-07-14 15:18] VITALS: BMI 24.8
[2020-06-20 11:34] LABS: Add Manual Diff / Slide Review NO; Basophils Absolute Auto 0 /uL (0-100); Basophils Percent Auto 0.8 % (0-2); Eosinophils Absolute Auto 0 /uL (0-450); Eosinophils Percent Auto 0.7 % (2-4); Hemoglobin 14.4 g/dL (13.5-17.5); Lymphocytes Absolute Auto 1400 /uL (1100-4500); Lymphocytes Percent Auto 27.6 % (25-40); Mean Corpuscular HGB Conc 35.1 % (30-36); Mean Corpuscular Hemoglobin 31.1 PG (26-34); Mean Corpuscular Volume 88.6 fL (80-100); Monocytes Absolute Auto 400 /uL (0-900); Monocytes Percent Auto 8.8 % (3-14); Neutrophils Absolute Auto 3100 /uL (1500-7000); Neutrophils Percent Auto 62.1 % (50-75); Platelet Count 202 X10^3/uL (150-400); Red Blood Cell Count 4.63 X10^6/uL (4.5-5.9); Red Cell Distribution Width 13.1 % (11.6-14.8); White Blood Cell Count 4.9 X10^3/uL (4.5-11.0)
[2020-06-20 11:45] LABS: Alanine Aminotransferase 19 IU/L (<50); Albumin 4.4 g/dL (3.5-5.0); Albumin Globulin Ratio 1.4 (1.0-2.8); Alkaline Phosphatase 96 U/L (38-126); Aspartate Aminotransferase 31 IU/L (17-59); BUN Creatinine Ratio 17.7 (6-22); Bilirubin Total 0.5 mg/dL (0.2-1.3); Blood Urea Nitrogen 17 mg/dL (9-20); Calcium 9.5 mg/dL (8.4-10.2); Carbon Dioxide 30 mmol/L (22-32); Chloride 103 mmol/L (98-107); Estimated Glomerular Filt Rate > 60.0 mL/min (>60); Globulin 3.2 g/dL (1.7-4.1); Glucose 92 mg/dL (80-110); HEMOLYSIS < 15 (0-50); Potassium 5.3 mmol/L (3.4-5.1); Sodium 136 mmol/L (137-145); Total Protein 7.6 g/dL (6.3-8.2)
[2020-06-20 11:46] LABS: Cholesterol 211 mg/dL (140-199); HDL Cholesterol 52 mg/dL (40-60); LDL Cholesterol Calculated 138 mg/dL (<100); Triglycerides 105 mg/dL (35-150)
[2020-06-20 12:09] LABS: Free T4, Direct Thyroxine 0.83 ng/dL (0.78-2.19)
[2020-06-20 12:16] LABS: Prostate Specific Antigen Scrn 1.75 ng/mL (0.1-4.0)
[2020-06-20 12:24] LABS: Thyroid Stimulating Hormone 3.52 uIU/mL (0.47-4.68)
[2020-06-21 06:36] LABS: Triiodothyronine T3 Total 115 ng/dL (71-180)
[2020-06-21 14:51] LABS: Anti Thyroglobulin Antibody <1.0 IU/mL (0.0-0.9)
[2020-06-29 12:09] LABS: Thyroglobulin Level 4.7 ng/mL (.)
== END ==
PROVIDERS: PCP Family Medicine; Referring Provider Internal Medicine Hematology & Oncology; Visit Provider Internal Medicine Hematology & Oncology
DX: Z12.5 Encounter for screening for malignant neoplasm of prostate (principal); Z13.6 Encounter for screening for cardiovascular disorders; C73 Malignant neoplasm of thyroid gland
CPT/HCPCS: 36415; 80053; 80061; 84432; 84439; 84443; 84480; 85025; 86800; G0103

== ENCOUNTER → 2020-09-19 10:28 | Outpatient (CLI) | payer OTHER, MEDICAID, SELFPAY ==
[2019-07-14 15:18] VITALS: BMI 24.8
--- NOTE | 2020-09-19 10:31 | DI.US.S_ITS ---
PROCEDURE: US THYROID INDICATIONS: HISTORY OF THYROID CANCER TECHNIQUE: Real-time scanning was performed of the thyroid gland, with image documentation. COMPARISON: [facility], US, US THYROID, 04/23/2019, 9:09. FINDINGS: Right: Thyroid lobe measures 5.2 x 1.9 x 1.7 cm, and is homogeneous in echotexture. 7 mm midpole colloid cyst. Mid inferior pole 5 mm calcification is unchanged. Left: Prior left thyroidectomy. Isthmus: 2.6 mm thick. Nodule number: 1 Location: Right mid Size: Unchanged at 0.7 x 0.5 x 0.4 cm Composition: Solid Echogenicity: Isoechoic Shape: wider than tall. Margins: Smooth Echogenic foci: None Total points: 3 ACR TI-RADS category: Mildly suspicious IMPRESSION: 1. Prior left thyroidectomy and the thyroid bed appears normal. 2. Stable appearance of left colloid cyst, calcification and sub cm nodule. ACR TI-RADS definitions and recommendations: TI-RADS 1 (benign): 0 points. FNA not needed. TI-RADS 2 (not suspicious): 2 points. FNA not needed. TI-RADS 3 (mildly suspicious): 3 points. * FNA if 2.5 cm or larger, follow up if 1.5 cm or larger (at 1, 3, and 5 years). TI-RADS 4 (moderately suspicious): 4-6 points. * FNA if 1.5 cm or larger, follow up if 1 cm or larger (at 1, 2, 3, and 5 years). TI-RADS 5 (highly suspicious): 7 points or more. * FNA if 1 cm or larger, follow up if 0.5 cm or larger (every year for 5 years). Dictated by: Uzair Mckenzie [facility] Interpreted: Aman Ignacio MD on 09/19/2020 at 13:31 Approved by: Aman Ignacio M.D. on 09/19/2020 at 17:05
== END ==
PROVIDERS: PCP Family Medicine; Referring Provider Internal Medicine Hematology & Oncology; Visit Provider Internal Medicine Hematology & Oncology
DX: C73 Malignant neoplasm of thyroid gland (principal); E04.1 Nontoxic single thyroid nodule
CPT/HCPCS: 76536

== ENCOUNTER → 2020-11-21 11:36 | Outpatient (CLI) | payer OTHER, MEDICAID, SELFPAY ==
[2019-07-14 15:18] VITALS: BMI 24.8
[2020-11-21 12:38] LABS: Prostate Specific Antigen Scrn 1.01 ng/mL (0.1-4.0)
== END ==
PROVIDERS: PCP Family Medicine; Referring Provider Family Medicine; Visit Provider Family Medicine
DX: Z12.5 Encounter for screening for malignant neoplasm of prostate (principal); Z13.6 Encounter for screening for cardiovascular disorders
CPT/HCPCS: 36415; G0103

== ENCOUNTER → 2021-03-22 11:48 | Outpatient (CLI) | payer OTHER, MEDICAID, SELFPAY ==
[2019-07-14 15:18] VITALS: BMI 24.8
--- NOTE | 2021-03-22 11:49 | DI.US.S_ITS ---
PROCEDURE: US THYROID INDICATIONS: PAPILLARY THYROID CANCER TECHNIQUE: Real-time scanning was performed of the thyroid gland, with image documentation. COMPARISON: [facility], CT, CT SOFT TISSUE NECK W CON, 06/24/2019, 9:03. [facility], US, US FINE NEEDLE ASPIRATION, 05/18/2019, 10:32. [facility], US, US THYROID, 04/23/2019, 9:09. [facility], US, US THYROID, 09/19/2020, 11:39. FINDINGS: Right: Thyroid lobe measures 5.1 x 1.6 x 2.2 cm. Left: Removed. Within the hemithyroidectomy bed, there is an apparent small amount of residual/recurrent thyroid tissue that measures 1.1 x 0.5 x 0.6 cm. Isthmus: 3 mm thick. Nodule number: 1 Location: Right superior thyroid Size: 1 x 0.6 x 0.8 cm, prior 0.7 x 0.6 x 0.6 cm. Composition: Cystic Echogenicity: Anechoic Shape: wider than tall. Margins: Smooth Echogenic foci: None Total points: 0 ACR TI-RADS category: 1 Nodule number: 2 Location: Right mid thyroid Size: 0.8 x 0.4 x 0.6 cm, prior 0.5 x 0.7 x 0.4 cm Composition: Solid, spongiform Echogenicity: Isoechoic/hypoechoic Shape: wider than tall. Margins: Smooth Echogenic foci: None. Total points: 2 ACR TI-RADS category: 2 Nodule number: 3 Location: Right inferior thyroid Size: 0.2 x 0.2 x 0.1 cm, prior 0.5 x 0.2 x 0.2 cm. Composition: Solid/calcified Echogenicity: Hyperechoic Shape: wider than tall. Margins: Smooth Echogenic foci: Peripheral calcifications Total points: 5 ACR TI-RADS category: 4 IMPRESSION: Status post left thyroidectomy. There is a small amount of residual/recurrent thyroid tissue seen within the hemithyroidectomy bed. Right-sided thyroid lesions are seen, which do not appear suspicious and are not significantly changed compared to the prior examination. ACR TI-RADS definitions and recommendations: TI-RADS 1 (benign): 0 points. FNA not needed. TI-RADS 2 (not suspicious): 2 points. FNA not needed. TI-RADS 3 (mildly suspicious): 3 points. * FNA if 2.5 cm or larger, follow up if 1.5 cm or larger (at 1, 3, and 5 years). TI-RADS 4 (moderately suspicious): 4-6 points. * FNA if 1.5 cm or larger, follow up if 1 cm or larger (at 1, 2, 3, and 5 years). TI-RADS 5 (highly suspicious): 7 points or more. * FNA if 1 cm or larger, follow up if 0.5 cm or larger (every year for 5 years). Dictated by: Jose Alfredo Granados M.D. on 03/22/2021 at 13:58 Approved by: Jose Alfredo Granados M.D. on 03/22/2021 at 14:02
[2021-03-22 12:19] LABS: Add Manual Diff / Slide Review NO; Basophils Absolute Auto 0 /uL (0-100); Basophils Percent Auto 0.7 % (0-2); Eosinophils Absolute Auto 0 /uL (0-450); Eosinophils Percent Auto 0.4 % (2-4); Hematocrit 43.9 % (41-53); Hemoglobin 15.1 g/dL (13.5-17.5); Lymphocytes Absolute Auto 1900 /uL (1100-4500); Lymphocytes Percent Auto 27.5 % (25-40); Mean Corpuscular HGB Conc 34.4 % (30-36); Mean Corpuscular Hemoglobin 31.1 PG (26-34); Mean Corpuscular Volume 90.4 fL (80-100); Monocytes Absolute Auto 700 /uL (0-900); Monocytes Percent Auto 10.7 % (3-14); Neutrophils Absolute Auto 4200 /uL (1500-7000); Neutrophils Percent Auto 60.7 % (50-75); Platelet Count 291 X10^3/uL (150-400); Red Blood Cell Count 4.86 X10^6/uL (4.5-5.9); Red Cell Distribution Width 14.2 % (11.6-14.8); White Blood Cell Count 6.9 X10^3/uL (4.5-11.0)
[2021-03-22 12:28] LABS: Alanine Aminotransferase 123 IU/L (<50); Albumin 4.6 g/dL (3.5-5.0); Albumin Globulin Ratio 1.4 (1.0-2.8); Alkaline Phosphatase 102 U/L (38-126); Aspartate Aminotransferase 65 IU/L (17-59); BUN Creatinine Ratio 14.8 (6-22); Bilirubin Total 0.3 mg/dL (0.2-1.3); Blood Urea Nitrogen 12 mg/dL (9-20); Calcium 9.4 mg/dL (8.4-10.2); Carbon Dioxide 27 mmol/L (22-32); Chloride 102 mmol/L (98-107); Estimated Glomerular Filt Rate > 60.0 mL/min (>60); Globulin 3.2 g/dL (1.7-4.1); Glucose 114 mg/dL (80-110); HEMOLYSIS < 15 (0-50); Potassium 3.9 mmol/L (3.4-5.1); Sodium 138 mmol/L (137-145); Total Protein 7.8 g/dL (6.3-8.2)
[2021-03-22 13:07] LABS: Thyroid Stimulating Hormone 2.71 uIU/mL (0.47-4.68)
== END ==
PROVIDERS: PCP Family Medicine; Referring Provider Internal Medicine Hematology & Oncology; Visit Provider Internal Medicine Hematology & Oncology
DX: C73 Malignant neoplasm of thyroid gland (principal); E04.2 Nontoxic multinodular goiter
CPT/HCPCS: 36415; 76536; 80053; 84443; 85025

== ENCOUNTER → 2021-09-29 12:17 | Outpatient (CLI) | payer OTHER, MEDICAID, SELFPAY ==
[2019-07-14 15:18] VITALS: BMI 24.8
[2021-09-29 12:45] LABS: Add Manual Diff / Slide Review NO; Basophils Absolute Auto 0 /uL (0-100); Basophils Percent Auto 0.6 % (0-2); Eosinophils Absolute Auto 100 /uL (0-450); Eosinophils Percent Auto 1.2 % (2-4); Hematocrit 39.3 % (41-53); Hemoglobin 13.8 g/dL (13.5-17.5); Lymphocytes Absolute Auto 2100 /uL (1100-4500); Lymphocytes Percent Auto 30.6 % (25-40); Mean Corpuscular Hemoglobin 30.7 PG (26-34); Mean Corpuscular Volume 87.5 fL (80-100); Monocytes Absolute Auto 800 /uL (0-900); Monocytes Percent Auto 11.3 % (3-14); Neutrophils Absolute Auto 3800 /uL (1500-7000); Neutrophils Percent Auto 56.3 % (50-75); Platelet Count 230 X10^3/uL (150-400); Red Blood Cell Count 4.49 X10^6/uL (4.5-5.9); Red Cell Distribution Width 12.4 % (11.6-14.8); White Blood Cell Count 6.7 X10^3/uL (4.5-11.0)
[2021-09-29 13:37] LABS: Alanine Aminotransferase 26 IU/L (<50); Albumin 4.3 g/dL (3.5-5.0); Albumin Globulin Ratio 1.6 (1.0-2.8); Alkaline Phosphatase 93 U/L (38-126); Aspartate Aminotransferase 29 IU/L (17-59); BUN Creatinine Ratio 22.9 (6-22); Bilirubin Total 0.2 mg/dL (0.2-1.3); Blood Urea Nitrogen 19 mg/dL (9-20); Calcium 9.8 mg/dL (8.4-10.2); Carbon Dioxide 28 mmol/L (22-32); Chloride 104 mmol/L (98-107); Estimated Glomerular Filt Rate > 60.0 mL/min (>60); Globulin 2.7 g/dL (1.7-4.1); Glucose 92 mg/dL (80-110); HEMOLYSIS < 15 (0-50); Potassium 4.6 mmol/L (3.4-5.1); Sodium 136 mmol/L (137-145)
[2021-09-29 14:06] LABS: TSH w/ Reflex to FT4 2.19 uIU/mL (0.47-4.68)
== END ==
PROVIDERS: PCP Physician Assistant; Referring Provider Physician Assistant; Visit Provider Physician Assistant
DX: Z85.850 Personal history of malignant neoplasm of thyroid (principal); F41.9 Anxiety disorder, unspecified; E78.5 Hyperlipidemia, unspecified; N40.1 Benign prostatic hyperplasia with lower urinary tract symptoms
CPT/HCPCS: 36415; 80053; 84153; 84443; 85025

== ENCOUNTER → 2022-04-09 10:13 | Outpatient (CLI) | payer OTHER, MEDICAID, SELFPAY ==
[2019-07-14 15:18] VITALS: BMI 24.8
--- NOTE | 2022-04-09 10:14 | DI.US.S_ITS ---
PROCEDURE: US THYROID INDICATIONS: thyroid cancer TECHNIQUE: Real-time scanning was performed of the thyroid gland, with image documentation. COMPARISON: [facility], US, US THYROID, 03/22/2021, 11:17. [facility], US, US THYROID, 09/19/2020, 11:39. [facility], US, US THYROID, 04/23/2019, 9:09. FINDINGS: Right: Thyroid lobe measures 5.3 x 2.1 x 1.8 cm, and is homogeneous in echotexture. Left: Status post left thyroidectomy. There is a 1.1 x 0.6 x 0.7 centimeters of probable residual left thyroid tissue which is stable compared to the prior exam obtained March 22, 2021. Nodule number: 1 Location: Right superior Size: 0.9 x 0.8 x 0.5 cm. Composition: Spongiform Echogenicity: Hypoechoic Shape: wider than tall. Margins: Smooth Echogenic foci: Non Total points: 2 ACR TI-RADS category: Not suspicious Nodule number: 2 Location: Right mid Size: 0.4 x 0.4 x 0.3 cm. Composition: Cystic Echogenicity: Anechoic Shape: wider than tall. Margins: Smooth Echogenic foci: None Total points: 0 ACR TI-RADS category: Benign Nodule number: 3 Location: Right mid Size: 0.5 x 0.4 x 6.0 cm. Composition: Spongiform Echogenicity: Hypoechoic Shape: wider than tall. Margins: Smooth Echogenic foci: None Total points: 2 ACR TI-RADS category: Not suspicious Nodule number: 4 Location: Right inferior Size: 0.2 x 0.2 x 0.2 cm. Composition: Solid Echogenicity: Hyperechoic Shape: wider than tall. Margins: Smooth Echogenic foci: Peripheral calcification Total points: 5 ACR TI-RADS category: Moderately suspicious IMPRESSION: 1. Status post left thyroidectomy. Probable residual thyroid tissue in the left thyroid fossa stable compared to prior exams. 2. Multiple subcentimeter right thyroid nodules. Based on thyroid nodule imaging characteristics, nodule size and criteria outlined below no additional imaging is recommended. ACR TI-RADS definitions and recommendations: TI-RADS 1 (benign): 0 points. FNA not needed. TI-RADS 2 (not suspicious): 2 points. FNA not needed. TI-RADS 3 (mildly suspicious): 3 points. * FNA if 2.5 cm or larger, follow up if 1.5 cm or larger (at 1, 3, and 5 years). TI-RADS 4 (moderately suspicious): 4-6 points. * FNA if 1.5 cm or larger, follow up if 1 cm or larger (at 1, 2, 3, and 5 years). TI-RADS 5 (highly suspicious): 7 points or more. * FNA if 1 cm or larger, follow up if 0.5 cm or larger (every year for 5 years). Dictated by: Maryse Jordan MD, PhD on 04/09/2022 at 11:50 Approved by: Maryse Jordan MD, PhD on 04/09/2022 at 11:59
== END ==
PROVIDERS: PCP Physician Assistant; Referring Provider Internal Medicine Hematology & Oncology; Visit Provider Internal Medicine Hematology & Oncology
DX: C73 Malignant neoplasm of thyroid gland (principal); E04.2 Nontoxic multinodular goiter
CPT/HCPCS: 76536

== ENCOUNTER → 2023-01-11 11:08 | Outpatient (CLI) | payer OTHER, MEDICAID, SELFPAY ==
[2019-07-14 15:18] VITALS: BMI 24.8
--- NOTE | 2023-01-11 | DI.US.S_ITS ---
PROCEDURE: US ABD AORTA ANEURYSM SCREEN INDICATIONS: Nicotine dependence, cigarettes, uncomplicated TECHNIQUE: Real time scanning was performed of the aorta and iliac arteries, with image documentation. COMPARISON: None. FINDINGS: Aorta: The proximal aorta is not seen, secondary to overlying bowel gas. Mid-aorta measures 1.8 cm. Distal aortic diameter is 1.6 cm. Iliac arteries: Right common iliac artery measures 0.8 cm. Left common iliac artery measures 0.8 cm. IMPRESSION: Negative for aneurysm. Dictated by: Jose Alfredo Granados M.D. on 01/11/2023 at 11:45 Approved by: Jose Alfredo Granados M.D. on 01/11/2023 at 11:46
== END ==
PROVIDERS: PCP Nurse Practitioner Family; Referring Provider Nurse Practitioner Family; Visit Provider Nurse Practitioner Family
DX: Z13.6 Encounter for screening for cardiovascular disorders (principal); F17.210 Nicotine dependence, cigarettes, uncomplicated
CPT/HCPCS: 76706

== ENCOUNTER → 2023-01-14 09:01 | Outpatient (CLI) | payer OTHER, MEDICAID, SELFPAY ==
[2019-07-14 15:18] VITALS: BMI 24.8
[2023-01-14 09:32] LABS: Add Manual Diff / Slide Review NO; Basophils Absolute Auto 100 /uL (0-100); Eosinophils Absolute Auto 100 /uL (0-450); Hemoglobin 14.3 g/dL (13.5-17.5); Lymphocytes Absolute Auto 1700 /uL (1100-4500); Lymphocytes Percent Auto 32.5 % (25-40); Mean Corpuscular HGB Conc 34.9 % (30-36); Mean Corpuscular Hemoglobin 30.3 PG (26-34); Mean Corpuscular Volume 86.8 fL (80-100); Monocytes Absolute Auto 600 /uL (0-900); Monocytes Percent Auto 11.5 % (3-14); Neutrophils Absolute Auto 2800 /uL (1500-7000); Platelet Count 262 X10^3/uL (150-400); Red Blood Cell Count 4.72 X10^6/uL (4.5-5.9); Red Cell Distribution Width 12.5 % (11.6-14.8); White Blood Cell Count 5.3 X10^3/uL (4.5-11.0)
[2023-01-14 09:55] LABS: Alanine Aminotransferase 22 IU/L (<50); Albumin 4.1 g/dL (3.5-5.0); Albumin Globulin Ratio 1.4 (1.0-2.8); Alkaline Phosphatase 115 U/L (38-126); Aspartate Aminotransferase 26 IU/L (17-59); Bilirubin Total 0.4 mg/dL (0.2-1.3); Blood Urea Nitrogen 16 mg/dL (9-20); Calcium 9.4 mg/dL (8.4-10.2); Carbon Dioxide 29 mmol/L (22-32); Chloride 103 mmol/L (98-107); Cholesterol 221 mg/dL (140-199); Estimated Glomerular Filt Rate > 60 mL/min (>60); Glucose 102 mg/dL (80-110); HDL Cholesterol 58 mg/dL (40-60); HEMOLYSIS < 15 (0-50); LDL Cholesterol Calculated 146 mg/dL (<100); Potassium 4.5 mmol/L (3.4-5.1); Sodium 138 mmol/L (137-145); Total Protein 7.1 g/dL (6.3-8.2); Triglycerides 84 mg/dL (35-150)
[2023-01-14 10:14] LABS: TSH w/ Reflex to FT4 2.46 uIU/mL (0.47-4.68)
[2023-01-14 10:17] LABS: Prostate Specific Antigen 1.47 ng/mL (0.10-4.00)
[2023-01-15 19:46] LABS: Hep C Virus Ab w/Reflex Quant NEGATIVE s/c (NEGATIVE)
== END ==
PROVIDERS: PCP Nurse Practitioner Family; Referring Provider Nurse Practitioner Family; Visit Provider Nurse Practitioner Family
DX: D64.9 Anemia, unspecified (principal); F33.1 Major depressive disorder, recurrent, moderate; N40.1 Benign prostatic hyperplasia with lower urinary tract symptoms; G47.00 Insomnia, unspecified; C73 Malignant neoplasm of thyroid gland; Z13.220 Encounter for screening for lipoid disorders; Z11.59 Encounter for screening for other viral diseases; Z13.1 Encounter for screening for diabetes mellitus; E78.5 Hyperlipidemia, unspecified
CPT/HCPCS: 36415; 80053; 80061; 84153; 84443; 85025; 86803

== ENCOUNTER → 2023-07-15 14:30 | Outpatient (CLI) | payer MEDICARE, SELFPAY ==
[2019-07-14 15:18] VITALS: BMI 24.8
--- NOTE | 2023-07-15 14:33 | DI.US.S_ITS ---
PROCEDURE: US THYROID INDICATIONS: HISTORY OF THYROID CANCER TECHNIQUE: Real-time scanning was performed of the thyroid gland, with image documentation. COMPARISON: [facility], US, US THYROID, 04/09/2022, 11:37. FINDINGS: Right: Thyroid lobe measures 4.8 x 1.4 x 2.0 cm, and is homogeneous in echotexture. Left: Status post left hemithyroidectomy. Area of possible residual thyroid tissue in the left thyroid bed is seen measuring 1.0 x 0.6 x 0.8 cm, not significantly changed when compared to the ultrasound from 04/09/2022. Isthmus: 0.4 cm thick. Nodule number: 1 Location: Right superior/mid Size: 1.1 x 0.5 x 0.9 cm, not significantly changed. Composition: Spongiform Echogenicity: Hypoechoic Shape: Wider than tall Margins: Smooth Echogenic foci: None Total points: 2 ACR TI-RADS category: Not suspicious Nodule number: 2 Location: Right mid lateral Size: 0.6 x 0.4 x 0.5 cm, previously 0.4 cm. Composition: Cystic Echogenicity: Anechoic Shape: Wider than tall Margins: Smooth Echogenic foci: None Total points: 0 ACR TI-RADS category: Benign Nodule number: 3 Location: Right mid/inferior Size: 0.7 x 0.4 x 0.6 cm, not significantly changed. Composition: Spongiform Echogenicity: Hypoechoic Shape: Wider than tall Margins: Smooth Echogenic foci: None Total points: 2 ACR TI-RADS category: Not suspicious Nodule number: 4 Location: Right inferior medial Size: 0.2 cm, unchanged Composition: Solid Echogenicity: Unable to assess due to calcification Shape: Wider than tall Margins: Ill-defined Echogenic foci: Macrocalcification Total points: 4 ACR TI-RADS category: Moderately suspicious IMPRESSION: 1. Status post left hemithyroidectomy. Suspected residual thyroid tissue in the left thyroid bed appears unchanged when compared to prior exams. 2. Multiple small right-sided thyroid nodules. Based on ACR guidelines provided below, no dedicated imaging follow-up is recommended. ACR TI-RADS definitions and recommendations: TI-RADS 1 (benign): 0 points. FNA not needed. TI-RADS 2 (not suspicious): 2 points. FNA not needed. TI-RADS 3 (mildly suspicious): 3 points. * FNA if 2.5 cm or larger, follow up if 1.5 cm or larger (at 1, 3, and 5 years). TI-RADS 4 (moderately suspicious): 4-6 points. * FNA if 1.5 cm or larger, follow up if 1 cm or larger (at 1, 2, 3, and 5 years). TI-RADS 5 (highly suspicious): 7 points or more. * FNA if 1 cm or larger, follow up if 0.5 cm or larger (every year for 5 years). Approved by: Gary Asif M.D. on 07/15/2023 at 16:32
== END ==
PROVIDERS: PCP Nurse Practitioner Family; Referring Provider Internal Medicine Hematology & Oncology; Visit Provider Internal Medicine Hematology & Oncology
DX: C73 Malignant neoplasm of thyroid gland (principal); E04.2 Nontoxic multinodular goiter
CPT/HCPCS: 76536

== ENCOUNTER → 2023-11-20 09:44 | Outpatient (CLI) | payer OTHER, SELFPAY ==
[2019-07-14 15:18] VITALS: BMI 24.8
[2023-11-20 11:41] LABS: Alanine Aminotransferase 18 IU/L (<50); Albumin Globulin Ratio 1.3 (1.0-2.8); Alkaline Phosphatase 98 U/L (38-126); Aspartate Aminotransferase 26 IU/L (17-59); BUN Creatinine Ratio 19.3 (6-22); Bilirubin Total 0.6 mg/dL (0.2-1.3); Blood Urea Nitrogen 16 mg/dL (9-20); Calcium 9.4 mg/dL (8.4-10.2); Carbon Dioxide 30 mmol/L (22-32); Chloride 105 mmol/L (98-107); Estimated Glomerular Filt Rate > 60 mL/min (>60); Globulin 3.1 g/dL (1.7-4.1); Glucose 93 mg/dL (80-110); HEMOLYSIS < 15 (0-50); Potassium 4.8 mmol/L (3.4-5.1); Sodium 138 mmol/L (137-145); Total Protein 7.1 g/dL (6.3-8.2)
[2023-11-21 14:09] LABS: Cholesterol HDL Ratio 3.7 ratio (0.0-5.0); Cholesterol,Total 206 mg/dL (100-199); HDL Cholesterol 55 mg/dL (>39); LDL Cholesterol Cal 139 mg/dL (0-99); Triglycerides 64 mg/dL (0-149); VLDL Cholesterol Cal 12 mg/dL (5-40)
== END ==
PROVIDERS: PCP Nurse Practitioner Family; Referring Provider Nurse Practitioner Family; Visit Provider Nurse Practitioner Family
DX: E78.5 Hyperlipidemia, unspecified (principal); N40.1 Benign prostatic hyperplasia with lower urinary tract symptoms
CPT/HCPCS: 36415; 80053; 80061; 84153

== ENCOUNTER → 2024-10-09 11:08 | Outpatient (CLI) | payer OTHER, SELFPAY ==
[2019-07-14 15:18] VITALS: BMI 24.8
--- NOTE | 2024-10-09 11:09 | DI.CT.S_ITS ---
PROCEDURE: CT LUNG LOW DOSE SCREENING INDICATIONS: Personal history of nicotine dependence TECHNIQUE: Noncontrast 2.0-2.5 mm thick sections acquired from the pulmonary apices to the posterior costophrenic angles. 7 mm thick axial MIP, and 5 mm coronal and sagittal reformats were then acquired. For radiation dose reduction, the following was used: automated exposure control, adjustment of mA and/or kV according to patient size. COMPARISON: None. FINDINGS: Image quality: Diagnostic. Lower Neck: No enlarged lymph nodes. Thyroid: No thyroid nodules which require sonographic follow up, per consensus guidelines. Left thyroid lobe appears absent. Axillae: No enlarged lymph nodes. Chest Wall: Unremarkable. Bones: Multilevel degenerative changes of the spine. Lungs and Pleura: No pneumothorax or pleural effusions. No consolidation or suspicious nodules. Mild pleural calcifications are noted at the bases. Heart: Heart size is normal. No pericardial effusion. Thoracic Vessels: The aorta and pulmonary arteries demonstrate normal size. Atherosclerotic vascular calcifications. Mediastinum and Olena: No enlarged lymph nodes. Esophagus: No wall thickening. No hiatal hernia. Upper Abdomen: Visualized upper abdomen solid organs and bowel loops appear normal. IMPRESSION: 1. No suspicious pulmonary nodules. 2. Mild pleural calcifications are noted at the bases, correlate for asbestosis exposure. LUNG-RADS 1; continued annual screening, if eligible. Dictated by: Abel Nolan M.D. on 10/09/2024 at 21:36 Approved by: Abel Nolan M.D. on 10/09/2024 at 21:41
== END ==
PROVIDERS: PCP Family Medicine; Referring Provider Internal Medicine Hematology & Oncology; Visit Provider Internal Medicine Hematology & Oncology
DX: Z12.2 Encounter for screening for malignant neoplasm of respiratory organs (principal); C73 Malignant neoplasm of thyroid gland; J94.8 Other specified pleural conditions; F17.200 Nicotine dependence, unspecified, uncomplicated
CPT/HCPCS: 71271

== ENCOUNTER → 2024-12-15 13:09 | Outpatient (CLI) | payer OTHER, SELFPAY ==
[2019-07-14 15:18] VITALS: BMI 24.8
== END ==
PROVIDERS: PCP Family Medicine; Visit Provider Urology
DX: N40.1 Benign prostatic hyperplasia with lower urinary tract symptoms (principal)
CPT/HCPCS: 87086

== ENCOUNTER 2024-12-28 12:10 | Day surgery (SDC) | payer OTHER, SELFPAY ==
[2019-07-14 15:18] VITALS: BMI 24.8
[2024-12-24 14:09] VITALS: BMI 25.5
[2024-12-28] VITALS (8 sets, daily range): BP systolic 110–136; BP diastolic 67–77; PULSE 53–82; RESP 14–16; TEMP 36.1–36.4; O2SAT 95–99; BMI 24.1
--- NOTE | 2024-12-28 | PATH_ITS ---
[facility] Accession Number: [id number] No. of containers..01 Tissue . 01 Material submitted: . prostate - PROSTATE CHIPS . 01 Diagnosis: PROSTATE CHIPS (6 GRAMS), TRANSURETHRAL RESECTION: Benign prostatic parenchyma with glandular and stromal hyperplasia. Fragment of unremarkable urothelial mucosa with underlying nodule consistent with post operative spindle cell nodule. No evidence of malignancy. ANJANA 12/31/2024 1306 Local . 01 Comment: Slide A3 (H/E Only) has also been reviewed by Dr. Stefania Denton, who concurs with the diagnosis. . 01 Electronically signed: . Elizabeth Hutchinson MD, Pathologist NPI- [id number] . 01 Gross description: . Received in formalin with two identifiers and prostate chips, are multiple pereira soft tissue fragments with no hemorrhagic material weighing 6 grams and aggregating to 4.7 x 3.9 x 1.5 cm. Submitted entirely in A1-A5. ([id number]) /MRV 12/29/2024 1323 Local . 01 Microscopic: . SMA, BEA and KI67 are performed to aid in the diagnosis of post operative spindle cell nodule. Controls stain appropriately. . 01 Pathologist provided ICD-10: N40.0 . 01 CPT . 257510, [id number], [id number] Specimen Comment: A courtesy copy of this report has been sent to [facility] Performed at: [address] [address], [place], [place] [id number] MD Joon London MD Phone: [phone]
[2024-12-28] MEDS: LACTATED RINGERS 1,000 ML 21 ML IV ×2 (14:13→16:00)
--- NOTE | 2024-12-28 14:59 | PM.PREOP ---
Pre-operative Note COVID-19 COVID-19 status: Not tested Interval Note History & Physical reviewed/Exam performed by Physician: Yes Changes to H&P: No
[2024-12-28] MEDS: levoFLOXacin 500 MG/100 ML PIGGYBACK 100 MG IV (15:25)
--- NOTE | 2024-12-28 15:43 | SUR.OPER ---
Lithotomy on padded OR bed, head on pillow, arms secured on padded arm boards at <90 degrees abduction. Legs secured in padded yellow fins stirrups.
[2024-12-28] MEDS: ACETAMINOPHEN IV 1,000 MG/100 ML VIAL 400 MG IV (16:19)
[2024-12-28] MEDS: OXYCODONE IR 5 MG TABLET PO (17:04)
[2024-12-28] MEDS: PHENAZOPYRIDINE 100 MG TABLET 200 MG PO (18:08)
[2024-12-28] MEDS: OXYBUTYNIN 5 MG TABLET PO (18:08)
--- NOTE | 2024-12-28 19:10 | SUR.PHASEII ---
Repeat of discharge instructions reviewed with patient and . Reviewed how to empty lazcano catheter and irrigation procedure if catheter becomes clogged. V/U. Home in stable condition with all belongings, irrigation kit and sterile water.
--- NOTE | 2024-12-30 15:41 | P.OP_ITS ---
Operative Date/Time/Diagnoses Date of procedure: 12/28/24 Pre-op diagnosis: Benign prostatic hyperplasia with lower urinary tract symptoms Post-op diagnosis: same Procedure & Clinicians Procedure: Cystoscopy Aquablation Same procedure as scheduled: Yes Indications: 64 y/o M noted to have symptoms consistent w/ BPH and LUTS that are poorly controlled on Tamsulosin 0.4mg daily and strongly desires management via an Aquablation procedure. Surgeon: Yanick Clark Click Yes if Unassisted: Yes Anesthesia Type: General Operative Notes Findings: Moderate sized prostate, small intravesical median lobe Closure Type: not applicable Specimen(s): other (prostate chips) Applied: catheter Estimated Blood Loss (mL): 50 Blood products transfused: none Procedure in detail: After informed consent was obtained, the patient was identified brought to the operating room where he was placed in his supine position on the table.? Once there anesthesia was induced and maintained.? Ensuring an adequate level of anesthesia the patient was transitioned to the lithotomy position where after time-out he was prepped.? After prepping, ensuring an adequate level of anesthesia, administration IV antibiotics and time-out 60 cc of ultrasound gel was instilled within the rectum and the ultrasound probe which had been attached to the TRUS stepper which was attached to the TRUS stepper articulating arm which was secured to the bed was advanced into the rectum under direct vision via the ultrasound.? The ultrasound probe was then aligned and confirmation made that the prostate was centered and aligned in both the sagittal and transverse views.? The bladder neck, verumontanum, central and transitional zones were identified.? With the ultrasound in place and adjusted the patient was then draped in a sterile fashion. With the patient draped the 24 [place] aqua beam handpiece was then inserted through the urethra and advanced into the bladder.? Cystoscopy was then performed and no concerning bladder mass or lesions were noted.? Bilateral ureteral orifices were noted to be orthotopic in nature.? As the cystoscope was advanced the level of the sphincter, verumontanum, bladder neck were all identified via ultrasound and under direct vision.? The aqua beam hand place was then secured to the handpiece articulating arm which had been secured to the bed.? The Aquablation handpiece and TRUS probe were confirmed to be parallel and colinear.? Confirmation was then made that the aqua beam handpiece and nozzle was centered and anterior to the bladder neck.? The cystoscope was then retracted under direct vision in the sphincter and verumontanum were identified.? The tip of the cystoscope was then placed proximal to the external sphincter.? Compression was applied with the TRUS probe to the prostate.? The alignment of the TRUS probe and aqua beam handpiece was once again confirmed.? Horizontal alignment of the handpiece water jet was then performed.? With these adjustments made, the treatment zones were then planned using real-time ultrasound.? In the largest transverse view of the prostate the depth and radial angles were determined and set again in the transverse view of the prostate.? In the longitudinal and sagittal view the Aquablation nozzle was identified and its position registered with the software and robot.? The treatment contours were then determined and adjusted to reflect the intended margins of resection.? Following our plan confirmation, the Aquablation resection treatment was started.? A 2nd pass was then completed in similar fashion after the 1st pass had been completed.? At this point, the Aqua hand piece was removed from the u rethra. The 26Fr resectoscope was then inserted into the urethra and cystoscopy was repeated.? The Elik dyed yarn operator was utilized to evacuate the blood clots from the bladder.? The bladder neck was then resected using the bipolar Gyrus loop.? Bilateral ureteral orifices were again identified and noted to be intact at case end.? Hemostasis was obtained and noted to be excellent at case end.? The res ectoscope was then removed and a 22Fr Ellis 3-way hematuria catheter was inserted through the urethra and into the bladder.? 45cc of sterile water was utilized for balloon insufflation.? Efflux was noted to be clear at case end.? Anesthesia was reversed, he was extubated in the OR and transferred to the PACU in stable condition for recovery. Complications: none Post-operative Condition: stable Disposition: PACU Plan for aftercare: Will continue to run CBI for a few hours to evaluate the efflux from his catheter.? Should it remain relatively clear and with minimal blood clots, will discharge home with catheter in place and have him return to Urology clinic in 2 days for a voiding trial.? Should his efflux remain red or have significant clot burden, will admit overnight for observation and continued CBI.
== END 2024-12-28 19:11 | disposition home or self-care (01) ==
PROVIDERS: PCP Family Medicine; Referring Provider Urology; Visit Provider Urology
PROC: 0VT08ZZ Resection of Prostate, Via Natural or Artificial Opening Endoscopic (ICD-10-PCS; CPT 0421T; principal; 2024-12-28 14:00)
DX: N40.1 Benign prostatic hyperplasia with lower urinary tract symptoms (principal); R35.0 Frequency of micturition; R35.1 Nocturia; F17.210 Nicotine dependence, cigarettes, uncomplicated
CPT/HCPCS: 0421T; C2596; J0131; J1100; J1956; J2405; J2704; J3010

== ENCOUNTER → 2024-12-30 15:41 | Outpatient (CLI) | payer OTHER, SELFPAY ==
[2019-07-14 15:18] VITALS: BMI 24.8
== END ==
PROVIDERS: PCP Family Medicine; Visit Provider Urology
DX: R39.9 Unspecified symptoms and signs involving the genitourinary system (principal)
CPT/HCPCS: 87086

== ENCOUNTER → 2025-01-02 14:41 | Outpatient (CLI) | payer OTHER, SELFPAY ==
[2019-07-14 15:18] VITALS: BMI 24.8
--- NOTE | 2025-01-02 14:43 | DI.RAD.S_ITS ---
PROCEDURE: XR FOREARM RT 2V INDICATIONS: Dog bite; injury of right forearm TECHNIQUE: 2 views of the forearm were acquired. COMPARISON: None. FINDINGS: Bones: No acute fractures or dislocations. No suspicious bony lesions. Soft tissues: No suspicious soft tissue calcifications. No radiopaque foreign body. Small foci of soft tissue gas at the distal forearm likely related to penetrating injury. IMPRESSION: No acute osseous abnormality. No radiopaque foreign body. Approved by: Gary Asif M.D. on 01/02/2025 at 15:05
== END ==
LOC: RAD 14:42
PROVIDERS: PCP Family Medicine; Referring Provider Physician Assistant Surgical; Visit Provider Physician Assistant Surgical
DX: S49.91XA Unspecified injury of right shoulder and upper arm, initial encounter (principal); W54.0XXA Bitten by dog, initial encounter
CPT/HCPCS: 73090